=== PATIENT | female | born 1965 | race American Indian/Alaskan Native ===

== ENCOUNTER 2017-03-16 05:55 | Day surgery (SDC) | payer MEDICARE ==
--- NOTE | 2017-03-16 06:40 | Short Stay Summary ---
Short Stay Documentation Date of service: 03/16/17 Narrative H&P: 51y/o with a history of complex hyperplasia without atypia. The patient was unable to tolerate medical management. She continues to have vaginal bleeding. [facility] was consulted and recommended treatment with a Mirena IUD. The patient was unable to tolerate placement of the device in the office. - History Principal diagnosis: Complex hyperplasia Past Medical History: diabetes, hypertension, stroke, other (morbid obesity) Past Surgical History: , Other (hysteroscopy/ D&C) Social history: - Allergies and Medications Current Medications: Allergies No Known Allergies Allergy (Unverified 06/25/16 11:08) Home Medications Medication Instructions Recorded Confirmed Last Taken Type metFORMIN [Glucophage] 500 mg PO BID #60 tablet 07/30/15 07/02/16 Unknown Rx Calcium Carbonate/Vitamin D3 1 each PO DAILY 07/02/16 07/02/16 07/01/16 History [Caltrate 600 Plus D3 Tablet] Ibuprofen [Motrin] 800 mg PO Q8HR PRN #60 tablet 07/02/16 Unknown Rx Iron Fum,Ps/FA/Vit B with C #9 1 each PO DAILY 07/02/16 07/02/16 07/01/16 History [Integra Plus Capsule] LORazepam [LORazepam] 1 mg PO PRN PRN 07/02/16 07/02/16 07/01/16 History Levothyroxine [Synthroid] 100 mcg PO QAM 07/02/16 07/02/16 07/02/16 History Levothyroxine [Synthroid] 200 mcg PO QAM 07/02/16 07/02/16 07/02/16 History [place]-3 Fatty Acids/Fish Oil [Fish 1 each PO DAILY 07/02/16 07/02/16 07/01/16 History Oil] Sertraline [Zoloft] 100 mg PO QDAY 07/02/16 07/02/16 Unknown History Valsartan/Hydrochlorothiazide 1 each PO DAILY 07/02/16 07/02/16 07/02/16 History [Valsartan-Hctz 160-12.5 mg Tab] Zolpidem [Ambien] 10 mg PO QHS 07/02/16 07/02/16 07/01/16 History oxyCODONE /ACETAMINOPHEN [Percocet 1 tab PO Q6HR PRN #30 tablet 07/02/16 Unknown Rx 5/325] - Physical exam General appearance: no acute distress Integumentary: no rash HEENT: Atraumatic Lungs: Clear to auscultation Breasts: deferred Heart: Regular rate Gastrointestinal: obese Female Genitourinary: deferred Rectal Exam: deferred - Brief post op/procedure progress note Date of procedure: 03/16/17 Pre-op diagnosis: complex endometrial hyperplasia Post-op diagnosis: same Procedure: Hysteroscopy Dilatation and curettage Placement of Mirena IUD Anesthesia: TAY Surgeon: JOSÉ MIGUEL NAVARRETE Estimated blood loss: minimal Pathology: list (endometrial curettings) Specimen disposition: to lab Condition: stable - Hospital course Hospital course: The patient was admitted the day of surgery and underwent a dilatation curettage and placement of Mirena IUD. Please see operative note for details of surgery. Her postoperative course was uneventful. - Disposition Condition at discharge: Good Disposition: DC-01 TO HOME OR SELFCARE Short Stay Discharge Plan Activity: other (pelvic rest for 2 weeks) Diet: regular Additional Instructions: Patient should call to schedule follow-up in 4 weeks Prescriptions: Ibuprofen [Motrin] 800 mg PO Q8HR PRN #60 tablet PRN Reason: Pain oxyCODONE /ACETAMINOPHEN [Percocet 5/325] 1 tab PO Q6HR PRN #30 tablet PRN Reason: Pain
--- NOTE | 2017-03-16 06:56 | Anesthesia Consultation ---
Anesthesia Consult and Med Hx Date of service: 03/16/17 - Airway Anesthetic Teeth Evaluation: Good ROM Head & Neck: Inadequate Mental/Hyoid Distance: Adequate Mallampati Class: Class III Intubation Access Assessment: Possibly Difficult - Pulmonary Exam CTA: Yes - Cardiac Exam Cardiac Exam: RRR - Pre-Operative Health Status ASA Pre-Surgery Classification: ASA3 Proposed Anesthetic Plan: General - Pulmonary COPD: No Hx Pneumonia: No Hx Sleep Apnea: Yes (uses Bipap) - Cardiovascular System Hx Hypertension: Yes (x 15 years) Hx Cardia Arrhythmia: Yes ("irregular heartbeat") Hx Valvular Heart Disease: Yes (MVP) - Central Nervous System Hx Psychiatric Problems: Yes (anxiety, depression) - Endocrine Hx End Stage Renal Disease: No Hx Non-Insulin Dependent Diabetes: Yes Hx Thyroid Disease: Yes Hx Hypothyroidism: Yes - Hematic Hx Anemia: Yes - Other Systems Hx Cancer: No Hx Obesity: Yes (morbid, BMI 69)
[2017-03-16] MEDS ORDERED: NACL BACTERIOSTATIC INFILTRATI ONE (06:57)
--- NOTE | 2017-03-16 06:57 | Anesthesia Day of Surgery ---
Anesthesia Day of Surgery - Day of Surgery Patient Examined: Yes Patient H&P Reviewed: Yes Patient is NPO: Yes
[2017-03-16] MEDS ORDERED: NACL 0.9% 1000 ML 1,000 ML IV SCH (07:00)
[2017-03-16] MEDS ORDERED: VERSED IV NR (07:00)
[2017-03-16] MEDS ORDERED: DIPRIVAN 10 MG/ML IV ONE (07:04)
[2017-03-16] MEDS ORDERED: DILAUDID ONE (07:05)
[2017-03-16] MEDS ORDERED: ZOFRAN ONE (07:10)
[2017-03-16] MEDS ORDERED: DECADRON ONE (07:10)
[2017-03-16] MEDS ORDERED: XYLOCAINE MPF 2% ONE (07:10)
[2017-03-16] MEDS ORDERED: PEPCID IV NR (07:30)
[2017-03-16] MEDS ORDERED: SILVER NITRATE TP ONE (07:35)
[2017-03-16 07:41] LABS: Anion Gap 17 mmol/L; BUN/Creatinine Ratio 21.42; Blood Urea Nitrogen 15 mg/dL (7-17); Calcium 9.3 mg/dL (8.4-10.2); Carbon Dioxide 23 mmol/L (22-30); Chloride 99.5 mmol/L (98-107); Glucose 285 mg/dL (65-100); Potassium 4.6 mmol/L (3.6-5.0); Sodium 135 mmol/L (137-145)
[2017-03-16] MEDS ORDERED: QUELICIN ONE (08:03)
[2017-03-16] MEDS ORDERED: ZEMURON IV ONE (08:07)
--- NOTE | 2017-03-16 08:44 | Operative Report ---
Operative Report Operative Report: Date of procedure: 03/16/2017 Pre-operative diagnosis: Postmenopausal bleeding; complex endometrial hyperplasia Post-operative diagnosis: Same as above Procedure name(s): Hysteroscopy; dilatation and curettage; placement of Mirena IUD Surgeon: Amee Louis M.D. Log Haul Operator: None Anesthesia: General tracheal anesthesia Findings lush endometrial cavity; no intracavitary lesions Indication: 51-year-old 89 with a history of postmenopausal bleeding. The patient has a history of a prior dilatation and curettage with findings of complex endometrial hyperplasia. [facility] oncology was consulted and their recommendation was for placement of Mirena IUD. Secondary to the patient's habitus and the retina could not be placed in the office. Procedure The patient was taken to the operating room and given general tracheal anesthesia without complication. The patient was prepped and draped in a normal sterile fashion. A bivalve speculum was placed in the patient's vagina single-tooth tenaculums placed on the anterior lip of the cervix. Placement of the single-toothed tenaculum was difficult secondary to minimal mobility of the uterus and redundant vaginal mucosa. The cervical os was dilated with graduated dilators. A uterine sound was inserted. The hysteroscope was then placed. Insufflation of the uterine cavity was performed with normal saline. Gen. survey of the uterine cavity revealed a lush endometrial cavity without findings of any intracavitary lesions. The hysteroscope was then removed. A sharp curettage of the endometrial cavity was performed. The Mirena IUD was inserted through the dilated os and deployed. The Mirena strings were cut approximately 3-4 cm in length. The remainder of the vaginal instruments were then removed atraumatically. The patient was then successfully extubated taken to the recovery room. All sponge laps and needle counts were correct 2.
[2017-03-16] MEDS ORDERED: NACL 0.9% IR ONE (11:06)
[2017-03-16 11:29] VITALS: BP 138/82
== END 2017-03-16 10:55 | disposition home or self-care (01) ==
LOC: OR 05:55
PROVIDERS: ATTEND Obstetrics & Gynecology
DX: N85.01 Benign endometrial hyperplasia (principal); N89.8 Other specified noninflammatory disorders of vagina; I10 Essential (primary) hypertension; F41.9 Anxiety disorder, unspecified; F32.9 Major depressive disorder, single episode, unspecified; E11.9 Type 2 diabetes mellitus without complications; E03.9 Hypothyroidism, unspecified; D64.9 Anemia, unspecified; G47.33 Obstructive sleep apnea (adult) (pediatric); E66.01 Morbid (severe) obesity due to excess calories; Z68.44 Body mass index [BMI] 60.0-69.9, adult; Z86.79 Personal history of other diseases of the circulatory system; Z86.73 Personal history of transient ischemic attack (TIA), and cerebral infarction without residual deficits; Z98.890 Other specified postprocedural states; Z79.84 Long term (current) use of oral hypoglycemic drugs; Z79.899 Other long term (current) drug therapy
CPT/HCPCS: 36415; 58558; 80048; 81025; 82962; 88305; J0330; J1170; J2250; J2405; J2704; J7030; J1100; J1815

== ENCOUNTER 2019-10-17 17:33 | Emergency (ER) | payer MEDICARE ==
--- NOTE | 2019-10-17 18:22 | Emergency Department Report ---
ED Headache HPI - General Chief Complaint: Headache Stated Complaint: HEAD PAIN Time Seen by Provider: 10/17/19 18:07 Source: patient Exam Limitations: no limitations - History of Present Illness Initial Comments: Patient is a 53-year-old female that presents emergency room with complaints of headache. Patient states the headache is right frontal and is radiating to her right face and ear. Patient states her symptoms started at 3 PM today. Patient states her symptoms have improved. Patient states initially her headache was a sharp pain and 10 out of 10. Patient states her pain now is a 4 out of 10. Patient states nothing makes her pain worse. Patient states nothing makes her pain better. Patient states that when her pain was really severe she felt weak. Patient states it was a generalized weakness. Patient denies slurred speech. Patient denies facial droop. Patient denies facial numbness. Patient denies numbness. Patient denies chest pain or shortness of breath. Patient denies blurry vision. Patient denies changes in vision Patient states she is on oxygen for obstructive sleep apnea all the time. Patient states they said she needed oxygen for her weight. Patient states she takes 2.5 L to 3 L/min per nasal cannula all the time. Patient states that her primary care took her off of thyroid medication 2 weeks ago. Patient states she was taking 200 mcg daily and he stopped it because her heart rate was high. Timing/Duration: 1-3 hours Quality: moderate Head Injury Location: frontal Recent Head Trauma: no recent headache/trauma Modifying Factors: improves with: rest Associated Symptoms: denies symptoms. denies: confusion, fatigue, facial pain, fever/chills, flushing, loss of consciousness, nausea/vomiting, nasal congestion, nasal drainage, numbness in legs/feet, rash, seizures, sinus infection, stiff neck, vision changes, weakness Allergies/Adverse Reactions: Allergies No Known Allergies Allergy (Verified 03/16/17 06:56) Home Medications: Ambulatory Orders metFORMIN [Glucophage] 500 mg PO BID #60 tablet 07/30/15 LORazepam 1 mg PO PRN PRN 07/02/16 Levothyroxine (Nf) [Synthroid] 200 mcg PO QAM 07/02/16 Levothyroxine [Synthroid] 100 mcg PO QAM 07/02/16 [place]-3 Fatty Acids/Fish Oil [Fish Oil] 1 each PO DAILY 07/02/16 Sertraline [Zoloft] 100 mg PO QDAY 07/02/16 Valsartan/Hydrochlorothiazide [Valsartan-Hctz 160-12.5 mg Tab] 1 each PO DAILY 07/02/16 Zolpidem [Ambien] 10 mg PO QHS 07/02/16 Ibuprofen [Motrin] 800 mg PO Q8HR PRN #60 tablet 03/16/17 Misoprostol 10 ml PO DAILY 03/16/17 oxyCODONE /ACETAMINOPHEN [Percocet 5/325] 1 tab PO Q6HR PRN #30 tablet 03/16/17 Naproxen [Naprosyn] 500 mg PO BID PRN #30 tablet 10/17/19 ED Review of Systems ROS: Stated complaint: HEAD PAIN Other details as noted in HPI Constitutional: denies: chills, fever Eyes: denies: eye pain, eye discharge, vision change ENT: denies: ear pain, throat pain Respiratory: denies: cough, shortness of breath, wheezing Cardiovascular: denies: chest pain, palpitations Endocrine: no symptoms reported Gastrointestinal: denies: abdominal pain, nausea, diarrhea Genitourinary: denies: urgency, dysuria, discharge Musculoskeletal: denies: back pain, joint swelling, arthralgia Skin: denies: rash, lesions Neurological: headache. denies: weakness, paresthesias Psychiatric: denies: anxiety, depression Hematological/Lymphatic: denies: easy bleeding, easy bruising ED Past Medical Hx - Past Medical History Previous Medical History?: Yes Hx Hypertension: Yes (x 15 years) Hx CVA: Yes (2017) Hx Congestive Heart Failure: No Hx Diabetes: Yes (x 15 years) Hx Psychiatric Treatment: Yes (Depression, anxiety) Hx COPD: No Hx HIV: No Additional medical history: Sleep apnea, Chronic Chest pain - Surgical History Past Surgical History?: No Additional Surgical History: Csection times three - Family History Family history: no significant - Social History Smoking Status: Never Smoker Substance Use Type: None - Medications Home Medications: Home Medications Medication Instructions Recorded Confirmed Last Taken Type metFORMIN [Glucophage] 500 mg PO BID #60 tablet 07/30/15 03/16/17 03/14/17 Rx LORazepam 1 mg PO PRN PRN 07/02/16 03/16/17 03/15/17 History Levothyroxine (Nf) [Synthroid] 200 mcg PO QAM 07/02/16 03/16/17 03/14/17 History Levothyroxine [Synthroid] 100 mcg PO QAM 07/02/16 03/16/17 03/14/17 History [place]-3 Fatty Acids/Fish Oil [Fish 1 each PO DAILY 07/02/16 03/16/17 07/01/16 History Oil] Sertraline [Zoloft] 100 mg PO QDAY 07/02/16 03/16/17 03/14/17 History Valsartan/Hydrochlorothiazide 1 each PO DAILY 07/02/16 03/16/17 03/14/17 History [Valsartan-Hctz 160-12.5 mg Tab] Zolpidem [Ambien] 10 mg PO QHS 07/02/16 03/16/17 03/14/17 History Ibuprofen [Motrin] 800 mg PO Q8HR PRN #60 tablet 03/16/17 Unknown Rx Misoprostol 10 ml PO DAILY 03/16/17 03/16/17 03/14/17 History oxyCODONE /ACETAMINOPHEN [Percocet 1 tab PO Q6HR PRN #30 tablet 03/16/17 Unkno wn Rx 5/325] Naproxen [Naprosyn] 500 mg PO BID PRN #30 tablet 10/17/19 Unknown Rx ED Physical Exam - General Limitations: No Limitations General appearance: alert, in no apparent distress - Head Head exam: Present: atraumatic, normocephalic - Eye Eye exam: Present: normal appearance, PERRL Pupils: Present: normal accommodation - ENT ENT exam: Present: mucous membranes moist - Neck Neck exam: Present: normal inspection, full ROM. Absent: tenderness, meningismus, lymphadenopathy, thyromegaly - Respiratory Respiratory exam: Present: normal lung sounds bilaterally. Absent: respiratory distress, wheezes, rales - Cardiovascular Cardiovascular Exam: Present: regular rate, normal rhythm. Absent: systolic murmur, diastolic murmur, rubs, gallop - GI/Abdominal GI/Abdominal exam: Present: soft, normal bowel sounds. Absent: distended, tenderness, guarding, rebound - Extremities Exam Extremities exam: Present: normal inspection - Back Exam Back exam: Present: normal inspection, full ROM - Neurological Exam Neurological exam: Present: alert, oriented X3, CN II-XII intact, normal gait, reflexes normal. Absent: abnormal gait, motor sensory deficit - Psychiatric Psychiatric exam: Present: normal affect, normal mood - Skin Skin exam: Present: warm, dry, intact, normal color. Absent: rash ED Course Vital Signs 10/17/19 10/17/19 10/17/19 17:45 17:51 18:54 Temperature 97.9 F Pulse Rate 87 Respiratory 16 19 Rate Blood Pressure Blood Pressure 150/93 [Right] O2 Sat by Pulse 95 95 Oximetry 10/17/19 10/17/19 10/17/19 19:00 19:15 19:41 Temperature Pulse Rate 85 Respiratory 17 14 Rate Blood Pressure 132/74 132/76 132/76 Blood Pressure [Right] O2 Sat by Pulse 93 94 97 Oximetry 10/17/19 10/17/19 10/17/19 19:45 20:00 20:15 Temperature Pulse Rate Respiratory 16 13 16 Rate Blood Pressure 109/57 123/77 126/76 Blood Pressure [Right] O2 Sat by Pulse 95 96 96 Oximetry 10/17/19 10/17/19 20:30 20:45 Temperature Pulse Rate Respiratory 17 12 Rate Blood Pressure 128/77 141/84 Blood Pressure [Right] O2 Sat by Pulse 94 97 Oximetry - Reevaluation(s) Reevaluation #1: An ABG was placed in the patient's chart from another patient in error. Patient will have an ABG done. 10/17/19 21:01 ABG done and results reviewed. 10/17/19 21:21 Reevaluation #2: Patient states that she is not having any respiratory symptoms. Patient states that her oxygen saturations were always is. I discussed the patient's ABG and the patient states that his her baseline. Patient states her headache is better. Patient will be given Toradol. I discussed all results and clinical findings with patient. I discussed plan of care with patient. Patient agrees with plan of care. Patient is stable for discharge. Patient will be discharged home. Patient given discharge instructions. Patient voiced understanding of discharge instructions. 10/17/19 21:52 ED Medical Decision Making - Lab Data Result diagrams: 10/17/19 18:38 10/17/19 18:38 - EKG Data -: EKG Interpreted by Me EKG shows normal: sinus rhythm, axis, intervals, QRS complexes, ST-T waves Rate: normal - Radiology Data Radiology results: report reviewed No acute findings on head CT. - Medical Decision Making Patient is a 53-year-old female that presents emergency room with complaints of headache. Patient's headache is right frontal and radiating to her ear. Patient also complained of weakness with the headache. Patient had labs done and labs were unremarkable. Patient had a ABG placed in her chart and air and a repeat ABG was done for confirmation. Patient does have a history of chronic respiratory failure and home O2. Patient's ABG at baseline. Patient recently stopped her thyroid medication per the request of her primary care. Patient was on 875 mcg of Synthroid and stopped it abruptly 2 weeks ago. Patient's TSH checked and is extremely high. Patient instructed to restart her thyroid medication and follow-up with endocrinology. Patient's head CT done due to her complaints of weakness and headache. Patient's head CT is negative. Patient is stable for discharge. Patient discharged home. Patient's headache and weakness secondary to abruptly stopped thyroid medication. - Differential Diagnosis Headache. Weakness. Headache secondary to missed meds. Hypothyroidism Critical care attestation.: If time is entered above; I have spent that time in minutes in the direct care o f this critically ill patient, excluding procedure time. ED Disposition Clinical Impression: Weakness, Morbid obesity with body mass index of 50 or higher, Obstructive sleep apnea, On home oxygen therapy, Elevated TSH Hypothyroidism Qualifiers: Hypothyroidism type: unspecified Qualified Code(s): E03.9 - Hypothyroidism, unspecified Headache Qualifiers: Headache type: unspecified Headache chronicity pattern: acute headache Intractability: not intractable Qualified Code(s): R51 - Headache Disposition: DC-01 TO HOME OR SELFCARE Is pt being admited?: No Does the pt Need Aspirin: No Condition: Stable Instructions: Cluster Headache (ED), Hypothyroidism (ED), Acute Headache (ED) Additional Instructions: Patient to follow-up with primary care in 2 to 3 days. Patient to follow-up with endocrinology in 2 to 3 days. Patient to restart thyroid medication. Patient to rest. Patient to increase water. Patient to take Tylenol or ibuprofen as needed for pain. Patient to take meds as directed. Patient to return to the ER if condition worsens, changes or new symptoms arise. Prescriptions: Naproxen [Naprosyn] 500 mg PO BID PRN #30 tablet PRN Reason: pain Referrals: PRIMARY CAREMD [Primary Care Provider] - 2-3 Days MARTIN BURR MD [Referring] - 2-3 Days JOB SAHU MD [Staff Physician] - 2-3 Days Time of Disposition: 21:55
[2019-10-17 18:58] LABS: Basophils % (Auto) 0.7 % (0.0-1.8); Eosinophils # (Auto) 0.1 K/mm3 (0.0-0.4); Eosinophils % (Auto) 1.9 % (0.0-4.3); Lymphocytes # (Auto) 1.3 K/mm3 (1.2-5.4); Lymphocytes % (Auto) 22.9 % (13.4-35.0); Mean Corpuscular HGB Conc 30 % (30-34); Mean Corpuscular Volume 78 fl (79-97); Monocytes # (Auto) 0.6 K/mm3 (0.0-0.8); Monocytes % (Auto) 9.9 % (0.0-7.3); Platelet Count 206 K/mm3 (140-440); Red Blood Count 5.57 M/mm3 (3.65-5.03); Red Cell Distribution Width 18.3 % (13.2-15.2)
[2019-10-17 19:02] LABS: Hematocrit 43.2 % (30.3-42.9); Hemoglobin 13.1 gm/dl (10.1-14.3)
[2019-10-17 19:21] LABS: Alanine Aminotransferase 11 units/L (7-56); Albumin 3.8 g/dL (3.9-5); BUN/Creatinine Ratio 20; Blood Urea Nitrogen 16 mg/dL (7-17); Calcium 9.5 mg/dL (8.4-10.2); Erythrocyte Sedimentation Rate 5 mm/Hr (0-20); Hemolysis Index 18
[2019-10-17 20:00] LABS: ABG HCO3 19.4 mmol/L (20.0-26.0); ABG Methemoglobin 0.8 % (0.0-1.5); ABG Oxygen Saturation 75.2 % (95.0-99.0); ABG PCO2 23.5 mm Hg; ABG PH 7.534 pH Units (7.350-7.450)
--- NOTE | 2019-10-17 20:08 | Cat Scan Report ---
NONENHANCED CT SCAN OF THE HEAD: INDICATION / CLINICAL INFORMATION: 53 years Female; Headache. weakness. TECHNIQUE: Routine CT head without contrast. All CT scans at this location are performed using CT dos e reduction for ALARA by means of automated exposure control. COMPARISON: None. FINDINGS: BRAIN / INTRACRANIAL CONTENTS: No acute hemorrhage, mass effect, midline shift, hydrocephalus, or ac [place], large territorial infarct. No chronic infarct or focal atrophy. Normal brain volume and ventricu lar/sulcal size for age. No significant white matter abnormality. CRANIOCERVICAL JUNCTION: No significant abnormality. ORBITS: Bilateral symmetric proptosis is seen. No retrobulbar mass. SINUSES / MASTOIDS: No significant abnormality of the visualized paranasal sinuses or mastoid air jamal ls. ADDITIONAL FINDINGS: None. IMPRESSION: No acute parenchymal lesion in the brain Signer Name: Morgan Huston MD Signed: 10/17/2019 8:03 PM Workstation Name: [id number]
[2019-10-17 20:12] LABS: ABG PO2 35.4 mm Hg (80.0-90.0)
[2019-10-17 21:00] VITALS: BP 141/84
[2019-10-17 21:16] LABS: ABG Base Excess 2.2 mmol/L (-2.0-3.0); ABG HCO3 28.6 mmol/L (20.0-26.0); ABG Methemoglobin 0.6 % (0.0-1.5); ABG Oxygen Saturation 91.2 % (95.0-99.0); ABG PCO2 51.9 mm Hg; ABG PH 7.36 pH Units (7.350-7.450); ABG PO2 59.3 mm Hg (80.0-90.0)
[2019-10-17] MEDS ORDERED: KETOROLAC 30 MG/1 ML INJ IV ONE (21:51)
== END 2019-10-17 22:31 | disposition home or self-care (01) ==
LOC: ED 17:33
DX: R51 Headache (principal); E66.01 Morbid (severe) obesity due to excess calories; Z68.45 Body mass index [BMI] 70 or greater, adult; G47.33 Obstructive sleep apnea (adult) (pediatric); E03.9 Hypothyroidism, unspecified; E11.9 Type 2 diabetes mellitus without complications; I10 Essential (primary) hypertension; F41.8 Other specified anxiety disorders; Z86.73 Personal history of transient ischemic attack (TIA), and cerebral infarction without residual deficits; Z98.890 Other specified postprocedural states; Z79.1 Long term (current) use of non-steroidal anti-inflammatories (NSAID); Z79.899 Other long term (current) drug therapy
CPT/HCPCS: 36415; 70450; 80053; 82803; 84443; 85025; 85652; 93005; 93010

== ENCOUNTER 2020-07-09 06:55 | Day surgery (SDC) | payer MEDICARE ==
--- NOTE | 2020-07-04 12:42 | Anesthesia Consultation ---
Anesthesia Consult and Med Hx Date of service: 07/09/20 - Airway Anesthetic Teeth Evaluation: Chipped ROM Head & Neck: Adequate Mental/Hyoid Distance: Adequate Mallampati Class: Class III Intubation Access Assessment: Possibly Difficult - Pre-Operative Health Status ASA Pre-Surgery Classification: ASA4 Proposed Anesthetic Plan: General - Pulmonary Hx Respiratory Symptoms: Yes (Uses inhaler) SOB: Yes ([place]) Hx Sleep Apnea: Yes (uses Bipap WITH HOME O2 ) - Cardiovascular System Hx Hypertension: Yes Hx Coronary Artery Disease: No (Reports negative ECHO/stress test) Hx Cardia Arrhythmia: Yes ("irregular heartbeat") - Central Nervous System CVA: Yes (TIA 2016-pt reports negative workup) Hx Psychiatric Problems: Yes (Anxiety/Depression) - Endocrine Hx Renal Disease: No Hx Liver Disease: No Hx Non-Insulin Dependent Diabetes: Yes Hx Thyroid Disease: Yes Hx Hypothyroidism: Yes - Hematic Hx Anemia: Yes - Other Systems Hx Cancer: No Hx Obesity: Yes (morbid, BMI 69)
[2020-07-04 12:50] LABS: Basophils % (Auto) 0.5 % (0.0-1.8); Eosinophils # (Auto) 0.1 K/mm3 (0.0-0.4); Lymphocytes # (Auto) 1.7 K/mm3 (1.2-5.4); Lymphocytes % (Auto) 26.2 % (13.4-35.0); Mean Corpuscular HGB Conc 29 % (30-34); Mean Corpuscular Volume 72 fl (79-97); Monocytes # (Auto) 0.6 K/mm3 (0.0-0.8); Monocytes % (Auto) 9.6 % (0.0-7.3); Platelet Count 317 K/mm3 (140-440); Red Blood Count 4.69 M/mm3 (3.65-5.03)
[2020-07-04 12:59] LABS: Hematocrit 33.9 % (30.3-42.9); Hemoglobin 9.8 gm/dl (10.1-14.3); Red Cell Distribution Width 21.1 % (13.2-15.2)
[2020-07-04 13:05] LABS: BUN/Creatinine Ratio 13; Blood Urea Nitrogen 12 mg/dL (7-17); Calcium 9.8 mg/dL (8.4-10.2); Hemolysis Index 0
--- NOTE | 2020-07-09 07:44 | Short Stay Summary ---
Short Stay Documentation Date of service: 07/09/20 Narrative H&P: 54-year-old with a history of postmenopausal bleeding. The patient has a history of hyperplasia. Unable to perform an endometrial biopsy in the office secondary to her habitus. The patient presents for hysteroscopy D&C and placement of Mirena IUD for control of her postmenopausal bleeding - History Principal diagnosis: Postmenopausal bleeding Past Medical History: diabetes, hypertension, other (Morbid obesity) Past Surgical History: , Other (Dilatation and curettage) Social history: - Allergies and Medications Current Medications: Allergies No Known Allergies Allergy (Verified 07/03/20 12:47) Home Medications Medication Instructions Recorded Confirmed Last Taken Type metFORMIN [Glucophage] 500 mg PO BID #60 tablet 07/30/15 07/03/20 03/14/17 Rx LORazepam 1 mg PO PRN PRN 07/02/16 07/03/20 03/15/17 History Levothyroxine [Synthroid] 100 mcg PO QAM 07/02/16 07/03/20 03/14/17 History Sertraline [Zoloft] 100 mg PO QDAY 07/02/16 07/03/20 03/14/17 History Ibuprofen [Motrin] 800 mg PO Q8HR PRN #60 tablet 03/16/17 07/03/20 Unknown Rx LORazepam [Lorazepam] 1 mg PO TID 07/03/20 07/03/20 Unknown History Albuterol Sulfate [Proventil Hfa] 3 puff IH Q4H 07/04/20 07/04/20 Unknown History Cholecalciferol (Vitamin D3) 50,000 unit PO BID 07/04/20 07/04/20 Unknown History [Vitamin D3 50,000UNIT CAP] Fenofibrate [Tricor] 145 mg PO QDAY 07/04/20 07/04/20 Unknown History Insulin Glargine/Lixisenatide 60 unit SQ QAM 07/04/20 07/04/20 Unknown History [[place] 100 Unit-33 Mcg/ml Pen] Losartan Potassium 100 mg PO DAILY 07/04/20 07/04/20 Unknown History Zolpidem [Ambien] 10 mg PO QHS 07/04/20 07/04/20 Unknown History hydroCHLOROthiazide 12.5 mg PO DAILY 07/04/20 07/04/20 Unknown History [Hydrochlorothiazide] - Physical exam General appearance: no acute distress Integumentary: no rash HEENT: Atraumatic Lungs: Clear to auscultation Breasts: deferred Heart: Regular rate Gastrointestinal: normal Female Genitourinary: deferred Rectal Exam: deferred - Brief post op/procedure progress note Date of procedure: 07/09/20 Pre-op diagnosis: Postmenopausal bleeding; morbid obesity Post-op diagnosis: same Procedure: Exam under anesthesia Anesthesia: GETA Surgeon: JOSÉ MIGUEL NAVARRETE Estimated blood loss: minimal Pathology: none Condition: stable - Hospital course Hospital course: The patient was admitted the day of surgery scheduled to undergo hysteroscopy, dilatation and curettage, and placement of Mirena IUD. Please see operative note for details of surgery. The surgery was then unable to be completed secondary to the patient's habitus and inability to isolate the cervix to proceed with the surgery. - Disposition Condition at discharge: Fair Disposition: DC-01 TO HOME OR SELFCARE Short Stay Discharge Plan Activity: no restrictions Additional Instructions: Schedule follow-up with Dr. Navarrete in 1 week Prescriptions: HYDROcodone/APAP 5-325 [[place] 5/325] 1 each PO Q6HR PRN #15 tablet PRN Reason: Pain
[2020-07-09] MEDS ORDERED: LACTATED RINGERS 1,000 ML IV SCH (08:01)
[2020-07-09] MEDS ORDERED: MIDAZOLAM 2 MG/2 ML INJ IV SCH (08:01)
[2020-07-09] MEDS ORDERED: HYDROmorphone 1 MG/1 ML INJ IV PRN ×2 (08:02)
[2020-07-09] MEDS ORDERED: ONDANSETRON 4 MG/2 ML INJ IV PRN (08:02)
--- NOTE | 2020-07-09 08:02 | Anesthesia Day of Surgery ---
Anesthesia Day of Surgery - Day of Surgery Patient Examined: Yes Patient H&P Reviewed: Yes Patient is NPO: Yes
[2020-07-09] MEDS ORDERED: SILVER NITRATE APPLICATOR 1 EA TP ONE (08:53)
[2020-07-09] MEDS ORDERED: HYDROmorphone 1 MG/1 ML INJ ONE (08:53)
[2020-07-09] MEDS ORDERED: LIDOCAINE MPF (2%) 20 MG/1 ML VIAL 5 ML ONE (08:54)
[2020-07-09] MEDS ORDERED: propofoL 200 MG/20 ML VIAL IV ONE (08:54)
[2020-07-09] MEDS ORDERED: SUCCINYLCHOLINE CHLORIDE 200 MG/10 ML INJ MDV ONE (09:30)
[2020-07-09] MEDS ORDERED: SUGAMMADEX SODIUM 200 MG/2 ML VIAL IV ONE (09:43)
[2020-07-09] MEDS ORDERED: SODIUM CHLORIDE 0.9% IRR 1,500 ML BOTTLE IR ONE (09:47)
[2020-07-09] MEDS ORDERED: SODIUM CHLORIDE 0.9% IRRIG SOLN 3000 ML IR ONE (09:47)
--- NOTE | 2020-07-09 10:06 | Operative Report ---
Operative Report Operative Report: Date of surgery: July 09, 2020 Preoperative diagnosis: Postmenopausal bleeding; morbid obesity Postoperative diagnosis: Same as above Procedure: Exam under anesthesia Surgeon: Amee Youssef M.D. Anesthesia: Gen. endotracheal anesthesia Estimated blood loss: Less than 50 mL Findings: Inability to perform dilatation and curettage secondary to the patient's habitus Indication: 54-year-old -1-1-3 with a history of postmenopausal bleeding. The patient presents for hysteroscopy dilatation and curettage and placement of Mirena IUD Procedure: The patient was taken to the operating room and given general endotracheal anesthesia without complication. The patient is prepped and draped in a normal sterile fashion. The patient was placed in high lithotomy position. A bivalve speculum was placed in the patient's vagina however visualization of the cervix could not be achieved secondary to the patient's habitus and redundant vaginal mucosa. Multiple attempts were made to isolate the cervix. The cervix was noted to be anteverted and located in the proximity of the symphysis pubis. There was no descent of the cervix with traction. Multiple attempts were made to place a single-tooth tenaculum on the cervix without success. After the multiple failed attempts, the decision was made to abort the procedure. The vaginal instruments were then removed atraumatically. The patient was then successfully extubated and taken to the recovery room in stable condition. All sponge laps and needle counts were correct x2.
[2020-07-09] MEDS ORDERED: ROCURONIUM 50 MG/5 ML INJ IV ONE (10:10)
--- NOTE | 2020-07-09 11:16 | Post Anesthesia Evaluation ---
- Post Anesthesia Evaluation Patient Participated: Yes Airway Patent: Yes Stable Respiratory Function: Yes Nausea/Vomiting: No Temp > 96.8F: Yes Pain Manageable: Yes Adequeate Hydration: Yes Anesthesia Complications: No Block Receding Appropriately: Not Applicable Patient on Ventilator: No
[2020-07-09 11:49] VITALS: BP 125/86
== END 2020-07-09 12:03 | disposition home or self-care (01) ==
LOC: OR 06:55
PROVIDERS: ATTEND Obstetrics & Gynecology
DX: N95.0 Postmenopausal bleeding (principal); Z20.828 Contact with and (suspected) exposure to other viral communicable diseases; E66.01 Morbid (severe) obesity due to excess calories; I10 Essential (primary) hypertension; F32.9 Major depressive disorder, single episode, unspecified; E03.9 Hypothyroidism, unspecified; D64.9 Anemia, unspecified; G47.33 Obstructive sleep apnea (adult) (pediatric); E78.00 Pure hypercholesterolemia, unspecified; F41.9 Anxiety disorder, unspecified; Z98.891 History of uterine scar from previous surgery; Z79.899 Other long term (current) drug therapy; Z79.84 Long term (current) use of oral hypoglycemic drugs; Z68.44 Body mass index [BMI] 60.0-69.9, adult; Z98.890 Other specified postprocedural states; Z86.73 Personal history of transient ischemic attack (TIA), and cerebral infarction without residual deficits
CPT/HCPCS: 36415; 57410; 80048; 82962; 84703; 85025; A4217; J0330; J1170; J2250; J2704; J7120; U0003